=== PATIENT | male | born 1950 | race Caucasian/White ===

== ENCOUNTER 2020-08-09 11:43 | Emergency (ER) | payer OTHER ==
[2020-08-09 12:30] LABS: HEMOGLOBIN 15.8 gm/dl (14.0-17.5); RED BLOOD COUNT 4.96 M/UL (4.20-5.50); WHITE BLOOD COUNT 11.7 K/UL (4.5-11.0)
[2020-08-09 12:56] LABS: BUN/CREATININE RATIO 22 (0-10)
== END 2020-08-09 14:16 | disposition home or self-care (01) ==
LOC: ER1 11:43
PROVIDERS: Internal Medicine
DX: R06.02 Shortness of breath (principal); E78.5 Hyperlipidemia, unspecified; I10 Essential (primary) hypertension; Z88.0 Allergy status to penicillin
CPT/HCPCS: 36415; 71046; 80048; 82550; 82553; 83880; 84484; 85025; 85379; 85610; 85730; 93005; 99285

== ENCOUNTER → 2021-04-19 | Outpatient (CLI) | payer OTHER | LOC: EMI 13:45 | DX: M54.50 Low back pain, unspecified (principal); M51.36 Other intervertebral disc degeneration, lumbar region; M47.816 Spondylosis without myelopathy or radiculopathy, lumbar region | CPT/HCPCS: 72148 ==

== ENCOUNTER 2021-08-20 12:06 | Emergency (ER) | payer MEDICARE | END 2021-08-20 16:50 | disposition home or self-care (01) | LOC: ER1 12:06 | DX: H53.9 Unspecified visual disturbance (principal); I10 Essential (primary) hypertension; Z88.0 Allergy status to penicillin | CPT/HCPCS: 99283 ==

== ENCOUNTER 2021-10-28 13:34 | Observation (INO) | payer OTHER ==
[~2021-10-28] VITALS: Ht 172.7 cm; Wt 106.6 kg
[2021-10-28 14:02] LABS: HEMOGLOBIN 14.9 gm/dl (14.0-17.5); RED BLOOD COUNT 4.55 M/UL (4.20-5.50); WHITE BLOOD COUNT 8.7 K/UL (4.5-11.0)
[2021-10-28 14:26] LABS: BUN/CREATININE RATIO 17 (0-10)
[2021-10-28] MEDS ORDERED: LISINOPRIL20 MG PO (15:23)
[2021-10-28] MEDS ORDERED: ATORVASTATIN CA20 MG PO (15:23)
[2021-10-28] MEDS ORDERED: BACLOFEN10 MG PO (15:24)
[2021-10-28] MEDS ORDERED: HYDROCODON-ACE1 EAC6 PO (15:24)
[2021-10-28] MEDS ORDERED: OMEPRAZOLE20 MG PO (15:24)
[2021-10-29 06:25] LABS: HEMOGLOBIN 14.3 gm/dl (14.0-17.5); RED BLOOD COUNT 4.3 M/UL (4.20-5.50); WHITE BLOOD COUNT 7.2 K/UL (4.5-11.0)
[2021-10-29 06:45] LABS: BUN/CREATININE RATIO 20 (0-10)
[2021-10-29] MEDS ORDERED: ASPIRIN EC81 MG PO (13:46)
== END 2021-10-29 14:40 | disposition home health service (06) ==
LOC: ER1 13:34 → M/S 14:40 → CDU 14:40 → M/S 14:40
PROVIDERS: Emergency Medicine; Physician Assistant Medical; ADMIT Internal Medicine
DX: R53.1 Weakness (principal); R20.0 Anesthesia of skin; I10 Essential (primary) hypertension; E78.5 Hyperlipidemia, unspecified; G89.29 Other chronic pain; M54.9 Dorsalgia, unspecified; K21.9 Gastro-esophageal reflux disease without esophagitis; E66.01 Morbid (severe) obesity due to excess calories; Z68.35 Body mass index [BMI] 35.0-35.9, adult; Z79.899 Other long term (current) drug therapy; Z88.0 Allergy status to penicillin
CPT/HCPCS: ECHO; 70450; 70496; 70498; 70551; 71045; 80048; 80053; 80061; 82550; 82553; 83036; 83735; 84484; 85025; 85027; 85730; 93005; 93306; 96372; 97110; 97110-GP-CQ; 97161; 99285; G0378; J1650; Q9967